=== PATIENT | female | born 1995 | race African-American/Black ===

== ENCOUNTER 2019-05-27 16:44 | Emergency (ER) | payer BC ==
[2019-05-27 16:56] VITALS: BP 148/75
[2019-05-27] MEDS ORDERED: PROM118S9 PO (17:03)
[2019-05-27] MEDS ORDERED: BENZ100C PO (17:03)
[2019-05-27] MEDS ORDERED: ALBU2.5V8 IH (17:03)
[2019-05-27] MEDS ORDERED: AZIT250T6 PO (17:03)
--- NOTE | 2019-05-27 17:03 | PHYS DOC ---
Past History Past Medical History: No Pertinent History Past Surgical History: No Surgical History Smoking: Non-smoker Alcohol Use: Occasionally Drug Use: None Adult General Chief Complaint Chief Complaint: COUGH HPI HPI Patient is a 23-year-old female presents with a cough for the past several weeks. It his gotten worse over the past few days. No fever. No production of the cough. Worse with lying down. No shortness of breath. No recent travel. No hemoptysis. No relief with home measures. Symptoms are moderate in intensity at worst. No sick contacts.[] Review of Systems Review of Systems Constitutional: Denies fever or chills [] Eyes: Denies change in visual acuity, redness, or eye pain [] HENT: Denies nasal congestion or sore throat [] Respiratory: See history of present illness[] Cardiovascular: No chest pain or palpitations[] GI: Denies abdominal pain, nausea, vomiting, bloody stools or diarrhea [] : Denies dysuria or hematuria [] Musculoskeletal: Denies back pain or joint pain [] Integument: Denies rash or skin lesions [] Neurologic: Denies headache, focal weakness or sensory changes [] Endocrine: Denies polyuria or polydipsia [] All other systems were reviewed and found to be within normal limits, except as documented in this note. Physical Exam Physical Exam Constitutional: Well developed, well nourished, no acute distress, non-toxic appearance. [] HENT: Normocephalic, atraumatic, bilateral external ears normal, oropharynx moist, no oral exudates, nose normal. No sinus tenderness. No significant posterior pharyngeal streaking. [] Eyes: PERRLA, EOMI, conjunctiva normal, no discharge. [] Neck: Normal range of motion, no tenderness, supple, no stridor. [] Cardiovascular:Heart rate regular rhythm, no murmur [] Lungs & Thorax: Bilateral breath sounds clear to auscultation [] Abdomen: Bowel sounds normal, soft, no tenderness, no masses, no pulsatile masses. [] Skin: Warm, dry, no erythema, no rash. [] Back: No tenderness, no CVA tenderness. [] Extremities: No tenderness, no cyanosis, no clubbing, ROM intact, no edema. [] Neurologic: Alert and oriented X 3, normal motor function, normal sensory function, no focal deficits noted. [] Psychologic: Affect normal, judgement normal, mood normal. [] EKG EKG [] Radiology/Procedures Radiology/Procedures [] Course & Med Decision Making Course & Med Decision Making Pertinent Labs and Imaging studies reviewed. (See chart for details) ED course: Patient arrived, was placed in bed, and tolerated exam well. Findings and plan were discussed with the patient who voiced understanding. All questions were answered. She was discharged in improved condition. Decision-making: Believe this to be more of a post-bronchitic cough. There are no adventitious lung sounds nor fever consistent with pneumonia. No evidence of this being congestive heart failure. No evidence of this being an acute coronary syndrome. However, we will hedge the diagnosis since patient appears reasonable and prescribe "just in case" antibiotics for use in several days if the symptom relief measures fail.[] Dragon Disclaimer Dragon Disclaimer This electronic medical record was generated, in whole or in part, using a voice recognition dictation system. Departure Departure: Impression: Primary Impression: Cough Disposition: HOME, SELF-CARE Condition: IMPROVED Referrals: PCP,VI (PCP) Patient Instructions: Cough, Adult Additional Instructions: Drink plenty of fluids. Take the medication as prescribed. Wait until June 01 to start the antibiotics, Zithromax. If doing better with the symptom relief medicines, do not take the Zithromax at all. If no improvement, take it as directed. Return to the ER if worsening cough, fever of more than 101, difficulty breathing, blood in what you're coughing up, or any other concerns. Scripts Azithromycin (AZITHROMYCIN TABLET) 250 Mg Tablet 1 PKG PO UD for cough for 5 Days, #6 TAB 0 Refills 2 the first day followed by 1 for days 2-5 Prov: JASSI EMERY DO 05/27/19 Benzonatate (TESSALON PERLE) 100 Mg Capsule 1 CAP PO TID for cough, #21 CAP Prov: JASSI EMERY DO 05/27/19 D-Methorphan Hb/Prometh Hcl (PROMETHAZINE-DM SYRUP) 118 Ml Syrup 5 ML PO PRN Q4HRS for cough, congestion, #120 ML Prov: JASSI EMERY DO 05/27/19 Albuterol Sulfate (VENTOLIN HFA INHALER) 18 Gm Hfa.aer.ad 2 PUFF IH PRN Q4HRS for cough, #1 INHALER 0 Refills Prov: JASSI EMERY DO 05/27/19 JASSI EMERY DO May 27, 2019 17:03
== END 2019-05-27 17:07 | disposition home or self-care (01) ==
LOC: ER 16:44
DX: R05 Cough (principal)
CPT/HCPCS: 99283